=== PATIENT | female | born 2000 | race Caucasian/White ===

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

== ENCOUNTER 2019-05-28 07:22 | Emergency (ER) | payer OTHER ==
[~2019-05-28] VITALS: Ht 154.9 cm; Wt 84.6 kg
[~2019-05-28 07:22] MED LIST: HYDR-5122 PO
[2019-05-28 07:26] VITALS: BP 125/55
--- NOTE | 2019-05-28 07:28 | NUR ---
PT TAKEN TO BED 9.
--- NOTE | 2019-05-28 07:30 | NUR ---
C/O CONSTANT 5TH R TOE PAIN 7/10 & SHARP X3 WEEKS. PT STATES SHE DOES NOT RECALL ANY INJURY TO THE TOE, BUT STATES THE PAIN HAS BEEN GETTING INCREASINGLY WORSE OVER THE LAST 3 WEEKS. +2 PEDAL PULSE TO R FOOT, DENIES NUMBNESS/TINGLING, CAP REFIL <3 SEC. 5TH R TOE APPEARS VERY SLIGHTLY REDDENED/SWOLLEN, NO OBVIOUS DEFORMITY NOTED. PT IS ABLE TO BEAR WEIGHT ON BOTH FEET. BED IN LOW POSITION, SIDE RAIL UP X1. OFFERED PT ICE PACK FOR HER TOE BUT SHE DECLINED.
[2019-05-28] MEDS ORDERED: LIDOCAINE 1% 500 MG/50 ML VIAL INJ SCH (07:40)
--- NOTE | 2019-05-28 07:40 | NUR ---
ermd at bedside
[2019-05-28] MEDS ORDERED: LIDOCAINE MPF 1% - 5 mL VIAL 5 ML ONE (07:44)
[2019-05-28 08:00] VITALS: BP 125/55
--- NOTE | 2019-05-28 08:00 | NUR ---
Patient discharged with v/s stable. Written and verbal after care instructions given and explained. Patient alert, oriented and verbalized understanding of instructions. Ambulatory with steady gait. All questions addressed prior to discharge. ID band removed. Patient advised to follow up with PMD. Rx of keflex and clotrimazole given. Patient educated on indication of medication including possible reaction and side effects. Opportunity to ask questions provided and answered.
--- NOTE | 2019-05-28 08:19 | NUR ---
Note [email or web address] in EDM - 05/28/19 at 0821 by [email or web address] Patient discharged with v/s stable. Written and verbal after care instructions given and explained. Patient alert, oriented and verbalized understanding of instructions. Ambulatory with steady gait. All questions addressed prior to discharge. ID band removed. Patient advised to follow up with PMD. Rx of keflex and clotrimazole given. Patient educated on indication of medication including possible reaction and side effects. Opportunity to ask questions provided and answered.
== END 2019-05-28 08:00 | disposition home or self-care (01) ==
LOC: MED 07:22
DX: B35.3 Tinea pedis (principal); L03.032 Cellulitis of left toe; Z79.899 Other long term (current) drug therapy
CPT/HCPCS: 99283; J2001

== ENCOUNTER 2019-11-09 09:06 | Emergency (ER) | payer OTHER ==
[~2019-11-09] VITALS: Ht 149.9 cm; Wt 88.0 kg
[2019-11-09 09:18] VITALS: BP 123/64
--- NOTE | 2019-11-09 09:23 | NUR ---
urine cup handed to pt for sample
--- NOTE | 2019-11-09 11:09 | NUR ---
TO ED 09; STEADY GAIT
--- NOTE | 2019-11-09 11:16 | NUR ---
19 Y/O F C/C GENERALIZED WEAKNESS/DIZZINESS/NAUSEA X 1 DAY. PER PT YESTERDAY AT PCP WHEN S/S OCCURRED. PCP REFERRED PT TO ER FOR FURTHER EVALUATION. PER PT HAD OCCURRENCE OF "PASSING OUT" THIS MORNING, WITNESS BY SISTER AT HOME. PT 16 WEEKS . NEURO WDL. NKA. NO HX. NO RX. NO V/D. DENIES ABNORMAL BLEEDING. SIDE RAIL X1. FAMILY AT BEDSIDE.
--- NOTE | 2019-11-09 11:21 | NUR ---
ERMD BEDSIDE EVALUATING PT
[2019-11-09] MEDS ORDERED: DEXT 5% / LACT RING 1,000 ML IV ONE (11:25)
[2019-11-09] MEDS ORDERED: FAMOTIDINE 20 MG/2 ML VIAL IVP ONE (11:25)
[2019-11-09] MEDS ORDERED: ONDANSETRON 4 MG/2 ML VIAL IVP ONE (11:25)
[2019-11-09 12:24] LABS: BASOPHILS % (AUTO) 0.3 % (0.0-2.0); EOSINOPHILS # (AUTO) 0.1 K/uL (0-0.4); HEMATOCRIT 35.6 % (36-48); HEMOGLOBIN 12.3 g/dL (12.0-16.0); LYMPHOCYTES # (AUTO) 1.8 K/uL (2.5-16.5); LYMPHOCYTES % (AUTO) 24.6 % (20.5-51.1); MEAN CORPUSCULAR HEMOGLOBIN 27 pg (27-31); MEAN CORPUSCULAR HGB CONC 35 g/dL (33-37); MEAN CORPUSCULAR VOLUME 77.6 fL (80-94); MONOCYTES # (AUTO) 0.4 K/uL (0.8-1.0); MONOCYTES % (AUTO) 5.1 % (1.7-9.3); NEUTROPHILS # (AUTO) 5.1 K/uL (1.8-7.7); PLATELET COUNT (AUTO) 277 K/uL (140-450); RED BLOOD CELL COUNT(AUTO) 4.58 MIL/uL (4.20-5.40); RED CELL DISTRIBUTION WIDTH 14.1 % (11.6-13.7); WHITE BLOOD COUNT (AUTO) 7.3 K/uL (4.5-11.0)
--- NOTE | 2019-11-09 12:28 | NUR ---
PT RESTING IN BED, SIDE RAIL X1
[2019-11-09 12:48] LABS: ALBUMIN 3.1 g/dL (3.4-5.0); ANION GAP 9.6 (8-16); CARBON DIOXIDE 27.1 mmol/L (21-32); CREATININE 0.6 mg/dL (0.6-1.3); POTASSIUM 3.7 mmol/L (3.5-5.1); TOTAL BILIRUBIN 0.3 mg/dL (0.0-1.0)
[2019-11-09 12:54] LABS: PROTHROMBIN TIME 9.2 secs (10.8-13.4)
[2019-11-09 14:00] LABS: APPEARANCE,URINE CLEAR (CLEAR); BILIRUBIN,URINE NEGATIVE (NEGATIVE); BLOOD, URINE NEGATIVE (NEGATIVE); COLOR,URINE ORANGE (YELLOW); LEUKOCYTE ESTERASE ,URINE NEGATIVE (NEGATIVE); NITRITE, URINE NEGATIVE (NEGATIVE); UGLUCOSE NEGATIVE (NEGATIVE)
[2019-11-09 14:03] VITALS: BP 124/62
--- NOTE | 2019-11-09 14:03 | NUR ---
Patient discharged with v/s stable. Written and verbal after care instructions given and explained. Patient alert, oriented and verbalized understanding of instructions. Ambulatory with steady gait. All questions addressed prior to discharge. ID band removed. Patient advised to follow up with PMD. Rx of MULTI+DHA given. Patient educated on indication of medication including possible reaction and side effects. Opportunity to ask questions provided and answered.
== END 2019-11-09 14:03 | disposition home or self-care (01) ==
LOC: MED 09:06
DX: O26.892 Other specified pregnancy related conditions, second trimester (principal); R55 Syncope and collapse; R53.1 Weakness; Z3A.17 17 weeks gestation of pregnancy; Z90.49 Acquired absence of other specified parts of digestive tract; Z79.899 Other long term (current) drug therapy
CPT/HCPCS: 36415; 76805; 80053; 81003; 81025; 84484; 84702; 85025; 85610; 85730; 86900; 86901; 93005; 96361; 96374; 96375; 99285; J2405; J3490; J7120; Q0092

== ENCOUNTER 2020-03-29 10:06 | Outpatient (CLI) | payer OTHER | END 2020-03-29 21:00 | disposition home or self-care (01) | LOC: MLB 10:06 | PROVIDERS: ATTEND Obstetrics & Gynecology | DX: Z11.59 Encounter for screening for other viral diseases (principal) | CPT/HCPCS: U0003-CS ==

== ENCOUNTER 2020-04-08 10:13 | Observation (INO) | payer OTHER, SELFPAY ==
[~2020-04-08] VITALS: Ht 149.9 cm; Wt 92.5 kg
[2020-04-08] MEDS ORDERED: PRETAB PO (10:25)
[2020-04-08 10:26] VITALS: BP 114/70
== END 2020-04-08 14:32 | disposition home or self-care (01) ==
LOC: MFCC 10:13
PROVIDERS: ADMIT Obstetrics & Gynecology; ATTEND Obstetrics & Gynecology
DX: O98.513 Other viral diseases complicating pregnancy, third trimester (principal); U07.1 COVID-19; O36.8130 Decreased fetal movements, third trimester, not applicable or unspecified; Z3A.38 38 weeks gestation of pregnancy
CPT/HCPCS: 59025; 76819; 81000; G0378; Q0092; U0003

== ENCOUNTER 2020-04-24 22:55 | Emergency (ER) | payer OTHER, SELFPAY ==
[~2020-04-24] VITALS: Ht 149.9 cm; Wt 85.7 kg
[~2020-04-24 22:55] MED LIST changes: -HYDR-5122 PO; +PRETAB PO
[2020-04-24 23:01] VITALS: BP 121/66
--- NOTE | 2020-04-24 23:10 | NUR ---
PT AMBULATED TO BED #11
--- NOTE | 2020-04-24 23:15 | NUR ---
LOWER ABDOMINAL PAIN X 1 DAY. PT RECENTLY HAD 04/15. INCISIONAL PAIN AND DISCHARGE. ABD IS SOFT, ROUND, TENDNERNES ON LOWER ABD REGION, HYPOACTIVE BS. LAST BM WAS 04/24/20. DENIES ANY N,V,D,FEVER, OR CONSTIPATION. SKIN: SHOWS C/S INCISION LOCATED VERTICALLY ON THE LOWER ABD. VSS. A&O X4. STEADY GAIT. NO BLOOD IN URINE OR IN STOOL. MEDHX- NONE NKA
--- NOTE | 2020-04-24 23:33 | NUR ---
Dr. Hernández examining patient.
--- NOTE | 2020-04-25 | NUR ---
PT WOUND COVERED WITH ABDOMINAL PAD AND SEALED WITH FOAM TAPE
[2020-04-25 00:40] VITALS: BP 114/68
== END 2020-04-25 00:40 | disposition home or self-care (01) ==
LOC: MED 22:55
DX: N39.0 Urinary tract infection, site not specified (principal); L76.22 Postprocedural hemorrhage of skin and subcutaneous tissue following other procedure; Z79.899 Other long term (current) drug therapy; Z90.49 Acquired absence of other specified parts of digestive tract
CPT/HCPCS: 81002; 87086; 99283